=== PATIENT | female | born 1930 | race Caucasian/White ===

== ENCOUNTER 2017-03-20 10:12 | Emergency (ER) | payer MEDICARE ==
[2017-03-20 10:35] VITALS: O2SAT 96
--- NOTE | 2017-03-20 10:40 | ERPHSYRPT ---
- History of Present Illness Time Seen by Provider: 03/20/17 10:35 Historian: patient, family Exam Limitations: no limitations Patient Subjective Stated Complaint: black stool since yesterday Triage Nursing Assessment: states had stool yesterday that was a little black but her stool this morning was 'nothing but black'. has had bleeding ulcers in the past. skin warm and dry. denies pain or weakness. Physician History: Noticed some dark tarry stools last two days and had GI Bleed previously. No abdominal pain, no N/V/D, no dizziness or weakness, no fever, chills or recent infections. Not on any anti-coagulants. No chest pain, SOB, or cough. Previous GI bleed required blood transfusions. Last GI scope was about one year ago that noted peptic ulcer. Timing/Duration: yesterday Activities at Onset: none Abdominal Pain Onset Location: other (No pain) Severity of Pain-Max: none Severity of Pain-Current: none Modifying Factors: Improves With: nothing Associated Symptoms: denies symptoms Previous symptoms: same symptoms as today (Previous GI bleed) Allergies/Adverse Reactions: morphine Allergy (Severe, Verified 03/20/17 10:38) Difficulty Breathing heaviness to chest. amiodarone Allergy (Verified 03/20/17 10:39) aspirin Allergy (Verified 03/20/17 10:39) celecoxib [From Celebrex] Allergy (Verified 03/20/17 10:39) codeine Allergy (Verified 03/20/17 10:39) dronedarone [From Multaq] Allergy (Verified 03/20/17 10:39) sulindac Allergy (Verified 03/20/17 10:39) Home Medications: Docusate Sodium [Stool Softener] 100 mg PO HSPRN PRN 02/25/14 [History] Famotidine 20 mg PO DAILY 02/25/14 [History] Sucralfate 1 gm [Carafate 1 GM] 1 gm PO QID 02/25/14 [History] Furosemide 20 mg [Lasix 20 mg] 20 mg PO BID 03/20/17 [History] Metoprolol Tartrate 50 mg [Lopressor 50 MG] 50 mg PO BID 03/20/17 [History ] Multivitamin [Multivitamins] 1 each PO DAILY 03/20/17 [History] Potassium Chloride 20 Meq [Klor-Con 20 MEQ] 20 meq PO BID 03/20/17 [History] Hx Tetanus, Diphtheria Vaccination/Date Given: Yes Hx Influenza Vaccination/Date Given: Yes Hx Pneumococcal Vaccination/Date Given: Yes Immunizations Up to Date: Yes - Review of Systems Constitutional: No Fever, No Chills Eyes: No Symptoms Ears, Nose, & Throat: No Symptoms Respiratory: No Cough, No Dyspnea Cardiac: No Chest Pain, No Edema, No Syncope Abdominal/Gastrointestinal: Melena, No Abdominal Pain, No Nausea, No Vomiting, No Diarrhea, No Hematemesis Genitourinary Symptoms: No Dysuria Musculoskeletal: No Back Pain, No Neck Pain Skin: No Rash Neurological: No Dizziness, No Focal Weakness, No Sensory Changes Psychological: No Symptoms Endocrine: No Symptoms All Other Systems: Reviewed and Negative - Past Medical History Pertinent Past Medical History: Yes Neurological History: No Pertinent History Cardiac History: Arrhythmia (Afib), Hypertension, Other Respiratory History: No Pertinent History Endocrine Medical History: No Pertinent History Musculoskeletal History: No Pertinent History GI Medical History: GI Bleed, Ulcer (Peptic Ulcer) History: No Pertinent History Psycho-Social History: No Pertinent History Female Reproductive Disorders: No Pertinent History, Breast Cancer Other Medical History: Shingles - Past Surgical History Past Surgical History: Yes Gastrointestinal: Appendectomy, Cholecystectomy Female Surgical History: Mastectomy - Social History Smoking Status: Never smoker Exposure to second hand smoke: No Drug Use: none Patient Lives Alone: No - Nursing Vital Signs Nursing Vital Signs: Initial Vital Signs Temperature 98.3 F Temperature Source Oral Pulse Rate 82 Respiratory Rate 16 Blood Pressure [Left Arm] 143/79 Pain Intensity 0 - Physical Exam General Appearance: no apparent distress, alert Eye Exam: PERRL/EOMI, eyes nml inspection Ears, Nose, Throat Exam: normal ENT inspection, pharynx normal, moist mucous membranes Neck Exam: normal inspection, non-tender, supple, full range of motion Respiratory Exam: normal breath sounds, lungs clear, No respiratory distress Cardiovascular Exam: regular rate/rhythm, normal heart sounds Gastrointestinal/Abdomen Exam: soft, normal bowel sounds, other (No external bleeding noted. Dark stools obtained for occult testing.), No tenderness, No mass Back Exam: normal inspection, normal range of motion, No CVA tenderness, No vertebral tenderness Extremity Exam: normal inspection, normal range of motion, pelvis stable Neurologic Exam: alert, oriented x 3, cooperative, normal mood/affect, nml cerebellar function, sensation nml, No motor deficits Skin Exam: normal color, warm, dry SpO2: 96 Oxygen Delivery: Room Air - Course Nursing assessment & vital signs reviewed: Yes Ordered Tests: Active Orders 24 hr Category Date Time Status Clean Catch Urine Specimen STAT Care 03/20/17 10:46 Active EKG-ER Only STAT Care 03/20/17 10:46 Active IV Insertion STAT Care 03/20/17 10:46 Active AMYLASE Stat Lab 03/20/17 11:05 Completed CBC W DIFF Stat Lab 03/20/17 11:05 Completed CMP Stat Lab 03/20/17 11:05 Completed LIPASE Stat Lab 03/20/17 11:05 Completed Occult Blood,Stool Other Stat Lab 03/20/17 11:11 Completed PROTIME WITH INR Stat Lab 03/20/17 11:05 Completed PTT Stat Lab 03/20/17 11:05 Completed UA Stat Lab 03/20/17 10:35 Completed Medication Summary Generic Name Dose Route Start Last Admin Trade Name Freq PRN Reason Stop Dose Admin Sodium Chloride 1,000 mls @ 50 mls/hr 03/20/17 11:00 03/20/17 11:38 Sodium Chloride 0.9% 1000 Ml IV 04/19/17 10:59 Not Given .Q20H EMILY Discontinued Medications Generic Name Dose Route Start Last Admin Trade Name Freq PRN Reason Stop Dose Admin Famotidine 20 mg 03/20/17 10:46 03/20/17 11:20 Pepcid 20 Mg Vial IV 03/20/17 10:47 20 mg STAT ONE Administration Famotidine Confirm 03/20/17 11:11 Pepcid 20 Mg Vial Administered 03/20/17 11:12 Dose 20 mg IV .STK-MED ONE Sodium Chloride 500 mls @ 999 mls/hr 03/20/17 10:46 03/20/17 11:21 Sodium Chloride 0.9% 1000 Ml IV 03/20/17 11:16 999 mls/hr .Q31M STA Administration Lab/Rad Data: Laboratory Result Diagrams 03/20/17 11:05 03/20/17 11:05 Laboratory Results 03/20/17 03/20/17 03/20/17 Range/Units 11:11 11:05 11:05 WBC (4.0-10.5) K/mm3 RBC (4.1-5.4) M/mm3 Hgb (12.0-16.0) gm/dl Hct (35-47) % MCV (78-100) fl MCH (26-32) pg MCHC (32-36) g/dl RDW (11.5-14.0) % Plt Count (150-450) K/mm3 MPV (6-9.5) fl Gran % (36.0-66.0) % Lymphocytes % (24.0-44.0) % Monocytes % (0.0-12.0) % Eosinophils % (0.00-5.0) % Basophils % (0.0-0.4) % Basophils # (0-0.4) INR 1.03 (0.8-3.0) APTT 26.4 (25.3-37.0) SECONDS Sodium 135 L (136-145) mEq/L Potassium 4.4 (3.5-5.1) mEq/L Chloride 104 (98-107) mEq/L Carbon Dioxide 27.8 (21-32) mEq/L Anion Gap 7.2 (5-15) MEQ/L BUN 22 H (9-20) mg/dL Creatinine 1.47 H (0.55-1.30) mg/dl Estimated GFR 36 ML/MIN Glucose 112 H (70-110) MG/DL Calcium 9.9 (8.5-10.1) mg/dL Total Bilirubin 0.6 (0.2-1.0) mg/dL AST 17 (15-37) U/L ALT 12 (12-78) U/L Alkaline Phosphatase 86 (46-116) U/L Serum Total Protein 7.0 (6.4-8.2) gm/dL Albumin 3.5 (3.4-5.0) g/dL Amylase 43 (25-115) U/L Lipase 100 (73-393) U/L Ur Collection Type Urine Color (YELLOW) Urine Appearance (CLEAR) Urine pH (5-6) Ur Specific [place] (1.005-1.025) Urine Protein (Negative) Urine Glucose (UA) (NEGATIVE) mg/dL Urine Ketones (NEGATIVE) Urine Nitrite (NEGATIVE) Urine Bilirubin (NEGATIVE) Urine Urobilinogen (0-1) mg/dL Urine WBC (Auto) (NEGATIVE) Urine RBC (Auto) (0-5) Leno/ul Stool Occult Blood NEGATIVE (Negative) Specimen Received 03/20/17 03/20/17 Range/Units 11:05 10:35 WBC 6.0 (4.0-10.5) K/mm3 RBC 3.76 L (4.1-5.4) M/mm3 Hgb 11.5 L (12.0-16.0) gm/dl Hct 35.5 (35-47) % MCV 94.4 (78-100) fl MCH 30.5 (26-32) pg MCHC 32.4 (32-36) g/dl RDW 13.8 (11.5-14.0) % Plt Count 287 (150-450) K/mm3 MPV 10.0 H (6-9.5) fl Gran % 62.5 (36.0-66.0) % Lymphocytes % 22.1 L (24.0-44.0) % Monocytes % 13.1 H (0.0-12.0) % Eosinophils % 2.0 (0.00-5.0) % Basophils % 0.3 (0.0-0.4) % Basophils # 0.02 (0-0.4) INR (0.8-3.0) APTT (25.3-37.0) SECONDS Sodium (136-145) mEq/L Potassium (3.5-5.1) mEq/L Chloride (98-107) mEq/L Carbon Dioxide (21-32) mEq/L Anion Gap (5-15) MEQ/L BUN (9-20) mg/dL Creatinine (0.55-1.30) mg/dl Estimated GFR ML/MIN Glucose (70-110) MG/DL Calcium (8.5-10.1) mg/dL Total Bilirubin (0.2-1.0) mg/dL AST (15-37) U/L ALT (12-78) U/L Alkaline Phosphatase (46-116) U/L Serum Total Protein (6.4-8.2) gm/dL Albumin (3.4-5.0) g/dL Amylase (25-115) U/L Lipase (73-393) U/L Ur Collection Type VOID Urine Color YELLOW (YELLOW) Urine Appearance SLIGHTLY CLOUDY (CLEAR) Urine pH 5.5 (5-6) Ur Specific [place] 1.020 (1.005-1.025) Urine Protein 100 (Negative) Urine Glucose (UA) NEGATIVE (NEGATIVE) mg/dL Urine Ketones NEGATIVE (NEGATIVE) Urine Nitrite NEGATIVE (NEGATIVE) Urine Bilirubin NEGATIVE (NEGATIVE) Urine Urobilinogen 0.2 (0-1) mg/dL Urine WBC (Auto) LARGE (NEGATIVE) Urine RBC (Auto) MODERATE (0-5) Leno/ul Stool Occult Blood (Negative) Specimen Received 03/20/17 1035 - Progress Progress: improved Progress Note: 03/20/17 10:44 Pt. given Pepcid and IVF's. 03/20/17 12:39 Resting comfortably, NAD Discussed with Dr.: Clay (Notified about pt. and aware. Will F/U in office) Counseled pt/family regarding: lab results, diagnosis - Departure Time of Disposition: 12:40 Departure Disposition: Home Clinical Impression: UTI (urinary tract infection) Condition: Stable Critical Care Time: No Instructions: Gastrointestinal Bleeding, Urinary Tract Infection (UTI)
[2017-03-20] MEDS ORDERED: Pepcid 20 MG VIAL IV ONE ×2 (10:46→11:11)
[2017-03-20] MEDS ORDERED: Sodium Chloride 0.9% 1000 ML 1,000 ML IV SCH (11:00)
[2017-03-20] MEDS ORDERED: Sodium Chloride 0.9% 1000 ML 1,000 ML ONE (11:11)
[2017-03-20 11:23] LABS: BASOPHIL % 0.3 % (0.0-0.4); Granulocytes % 62.5 % (36.0-66.0); Lymphocytes % 22.1 % (24.0-44.0); Mean Cell Volume 94.4 fl (78-100); Monocytes % 13.1 % (0.0-12.0); Platelet Count 287 K/mm3 (150-450); Red Blood Count 3.76 M/mm3 (4.1-5.4); Red Cell Distribution Width 13.8 % (11.5-14.0)
[2017-03-20 11:25] LABS: Mean Corpuscular Hemoglobin 30.5 pg (26-32)
[2017-03-20 11:46] LABS: INR 1.03 (0.8-3.0); PROTIME 11.5 SECONDS (9.95-12.35)
[2017-03-20 11:48] LABS: ALBUMIN 3.5 g/dL (3.4-5.0); ANION GAP 7.2 MEQ/L (5-15); BILIRUBIN,TOTAL 0.6 mg/dL (0.2-1.0); Carbon Dioxide 27.8 mEq/L (21-32); PTT 26.4 SECONDS (25.3-37.0); Potassium 4.4 mEq/L (3.5-5.1)
[2017-03-20 11:52] LABS: Collection Type VOID; Ph 5.5 (5-6)
[2017-03-20 11:53] LABS: COMPLETE URINE MICROSCOPIC? NO
[2017-03-20 12:58] VITALS: BP 189/80; PULSE 76
== END 2017-03-20 12:55 | disposition home or self-care (01) ==
LOC: ED 10:12
DX: N39.0 Urinary tract infection, site not specified (principal); K92.1 Melena; Z79.899 Other long term (current) drug therapy; I10 Essential (primary) hypertension
CPT/HCPCS: 36000; 36415; 80053; 81002; 82150; 82272; 83690; 85025; 85610; 85730; 93005; 96360; 96374; 99284